=== PATIENT | male | born 1945 | race Caucasian/White ===

== ENCOUNTER 2019-06-11 20:47 | Inpatient (IN) ==
[2019-06-11] MEDS ORDERED: SODIUM CHLORIDE 0.9% 1,000 ML IV STA (22:10)
[2019-06-11] MEDS ORDERED: ONDANSETRON 4 MG/2 ML VIAL IV STA (22:10)
[2019-06-11] MEDS ORDERED: ORPHENADRINE 60 MG/2 ML VIAL IV STA (22:10)
[2019-06-11 22:17] LABS: Basophils % 0.5 % (0.0-0.8); Eosinophils # 0.2 10*3/uL (0.0-0.87); Eosinophils % 2.2 % (0.00-10.9); Hematocrit 36.9 VOL% (42.0-52.0); Hemoglobin 11.4 GM/DL (14.0-18.0); Immature Granulocytes % 0.5 %; Immature Granulocytes Absolute 0.04 #; Lymphocytes # 1.2 10*3/uL (1.4-4.0); Lymphocytes % 14.2 % (21.2-54.2); Mean Corpuscular HGB Conc 30.9 GM/DL (32-36); Mean Corpuscular Volume 96.6 FL (87-102); Mean Platelet Volume 10.2 FL (9.6-12.0); Monocytes % 12.4 % (1.7-12.7); Neutrophils % 70.2 % (38.7-73.9); Platelet Count 171 T/CUMM (130-400); Red Blood Count 3.82 MC/CUMM (3.8-5.5); Red Cell Distribution Width 13.7 % (9.3-17.3); White Blood Count 8.3 T/CUMM (4-12)
[2019-06-11 22:32] LABS: Albumin 3.5 G/DL (3.4-5.0); Bilirubin,Total 0.4 MG/DL (0.2-1.0); CKMB % 1.7 %; Calcium 8.1 MG/DL (8.5-10.1); Total Protein 5.9 G/DL (6.4-8.3); Troponin I < 0.015 NG/ML (0.00-0.045)
[2019-06-12 00:23] LABS: INR 0.9; PT Patient Result 10.2 SECS; Partial Thromboplastin Time 29.8 SECS (0-40)
[2019-06-12] MEDS ORDERED: SODIUM CHLORIDE 0.9% 1,000 ML IV STA (00:42)
[2019-06-12] MEDS ORDERED: PROMETHAZINE 25 MG/1 ML VIAL IM PRN (00:48)
[2019-06-12] MEDS ORDERED: NICOTINE 21 MG/24 HR PATCH TRANSDERM PRN (00:48)
[2019-06-12] MEDS ORDERED: diphenhydrAMINE CAP 25 MG CAPSULE PO PRN (00:48)
[2019-06-12] MEDS ORDERED: ONDANSETRON 4 MG/2 ML VIAL IV PRN (00:48)
[2019-06-12] MEDS ORDERED: ACETAMINOPHEN 325 MG TABLET PO PRN (00:48)
[2019-06-12] MEDS ORDERED: MORPHINE 4 MG/1 ML VIAL IV PRN (00:48)
[2019-06-12] MEDS ORDERED: guaiFENesin/DM ER 600-30 MG TABLET PO PRN (00:48)
[2019-06-12] MEDS ORDERED: VANCOMYCIN INJ 1,250 MG in SODIUM CHLORIDE 0.9% 250 ML IV PRN (01:00)
[2019-06-12] MEDS ORDERED: PIPERACILLIN/TAZOBACTAM 3,375 MG in SODIUM CHLORIDE 0.9% 100 ML IV SCH (01:00)
[2019-06-12 01:38] LABS: Risk Ratio 5.47; VLDL CHOLESTEROL 24.4 MG/DL
[2019-06-12] MEDS: SODIUM CHLORIDE 0.9% 1,000 ML IV SCH ×4 (02:20→18:26)
[2019-06-12 03:19] LABS: ABG Oxygen Saturation 98.1 % (95-100); ABG PCO2 49.2 MM HG (35-48); ABG PH 7.218 (7.35-7.45); ABG TCO2 18.4 MMOL/L (23-27); Allen Test Positive
[2019-06-12 04:35] LABS: Basophils % 0.4 % (0.0-0.8); Eosinophils # 0.2 10*3/uL (0.0-0.87); Eosinophils % 2.5 % (0.00-10.9); Hematocrit 33.5 VOL% (42.0-52.0); Hemoglobin 10.5 GM/DL (14.0-18.0); Immature Granulocytes % 0.6 %; Immature Granulocytes Absolute 0.04 #; Lymphocytes # 1.2 10*3/uL (1.4-4.0); Lymphocytes % 17.1 % (21.2-54.2); Mean Corpuscular HGB Conc 31.3 GM/DL (32-36); Mean Corpuscular Volume 97.1 FL (87-102); Mean Platelet Volume 10.5 FL (9.6-12.0); Monocytes % 13.8 % (1.7-12.7); Neutrophils % 65.6 % (38.7-73.9); Platelet Count 143 T/CUMM (130-400); Red Blood Count 3.45 MC/CUMM (3.8-5.5); Red Cell Distribution Width 13.7 % (9.3-17.3); White Blood Count 7.2 T/CUMM (4-12)
[2019-06-12 05:09] LABS: Alanine Aminotransferase 17 U/L (16-61); Albumin 3.1 G/DL (3.4-5.0); Alkaline Phosphatase 92 U/L (45-117); Aspartate Amino Transferase 20 U/L (0-37); Blood Urea Nitrogen 61 MG/DL (7-18); Calcium 7.7 MG/DL (8.5-10.1); Glucose 88 MG/DL (74-106); Osmolality,Calculated 290.7 MOS/KG (273-304); Total Protein 5.7 G/DL (6.4-8.3); Troponin I < 0.015 NG/ML (0.00-0.045)
[2019-06-12] MEDS: AZITHROMYCIN INJ 500 MG in SODIUM CHLORIDE 0.9% 250 ML IV SCH (06:07)
[2019-06-12] MEDS ORDERED: DEXTROSE 50% 25 GM/50 ML VIAL IV PRN (07:31)
[2019-06-12] MEDS ORDERED: GLUCAGON 1 MG VIAL IM PRN (07:31)
[2019-06-12 07:54] LABS: Amorphous Crystals,Urine Occasional /HPF (Few); Apearance,Urine CLOUDY (Clear); Bacteria,Urine Occasional /HPF (Few); Bilirubin,Urine Negative (Negative); Blood, Urine Small mg/dL (Negative); Glucose,Urine (UA) Negative (Negative); Hyaline Casts,Urine 35 /LPF (0-3); Ketones,Urine Negative (Negative); Mucus,Urine Occasional /LPF (Occasional); Nitrite,Urine Negative (Negative); Protein,Urine Negative; RBC,Urine 6 /HPF (0-4); Urine Color Yellow (Yellow); Urine Specific Gravity 1.015 (1.001-1.035); Urine Urobilinogen < 2.0 EU/DL (0.2-1.0); WBC,Urine 9 /HPF (0-6)
[2019-06-12] MEDS ORDERED: VANCOMYCIN INJ 1,250 MG in SODIUM CHLORIDE 0.9% 250 ML IV ONE (08:00)
[2019-06-12] MEDS: predniSONE 20 MG TABLET PO SCH (08:21)
[2019-06-12] MEDS: PANTOPRAZOLE 40 MG TABLET PO SCH (08:21)
[2019-06-12] MEDS ORDERED: predniSONE 5 MG TABLET PO SCH (09:00)
[2019-06-12] MEDS: INSULIN LISPRO 100 UNIT/ML SUBCUT SCH ×3 (12:20→20:51)
[2019-06-12 13:00] LABS: ABG Base Excess -8.3 MMOL/L (-2.5-2.5); ABG HCO3 17.6 MMOL/L (20-26); ABG Oxygen Saturation 92.5 % (95-100); ABG PCO2 52.5 MM HG (35-48); ABG PO2 75.6 MM HG (80-95); ABG TCO2 18.7 MMOL/L (23-27)
[2019-06-12 13:03] LABS: ABG PH 7.194 (7.35-7.45)
[2019-06-12] MEDS ORDERED: SODIUM BICARBONATE 50 MEQ/50 ML VIAL IV ONE ×2 (13:14→13:21)
[2019-06-12] MEDS ORDERED: NALOXONE 0.4 MG/ML VIAL ONE (13:14)
[2019-06-12] MEDS ORDERED: NALOXONE 0.4 MG/ML VIAL IV ONE ×2 (13:22→13:31)
[2019-06-12] MEDS ORDERED: NOREPINEPHRINE 8 MG in SODIUM CHLORIDE 0.9% 242 ML IV PRN (13:22)
[2019-06-12 15:06] LABS: ABG Base Excess -5.7 MMOL/L (-2.5-2.5); ABG HCO3 19.5 MMOL/L (20-26); ABG Oxygen Saturation 97.6 % (95-100); ABG PH 7.339 (7.35-7.45); ABG PO2 113.8 MM HG (80-95); ABG TCO2 20.6 MMOL/L (23-27); Pt O2 Delivery Device BIPAP
[2019-06-12] MEDS ORDERED: ENOXAPARIN 100 MG/ML SYRINGE SUBCUT ONE (17:28)
[2019-06-12] MEDS ORDERED: METOPROLOL TARTRATE 50 MG TABLET PO ONE (17:31)
[2019-06-12 18:31] LABS: Calcium 7.3 MG/DL (8.5-10.1); Osmolality,Calculated 295.7 MOS/KG (273-304)
[2019-06-12] MEDS: LIDOCAINE 5% PATCH TRANSDERM SCH (22:35)
[2019-06-13] MEDS: oxyCODONE/ACETAMINOPHEN 5-325 MG TABLET PO PRN ×3 (02:35→12:48)
[2019-06-13] MEDS: SODIUM CHLORIDE 0.9% 1,000 ML IV SCH ×4 (03:32→21:13)
[2019-06-13 04:38] LABS: Basophils % 0.2 % (0.0-0.8); Eosinophils % 0.2 % (0.00-10.9); Hematocrit 30.6 VOL% (42.0-52.0); Hemoglobin 9.8 GM/DL (14.0-18.0); Immature Granulocytes % 0.7 %; Immature Granulocytes Absolute 0.04 #; Lymphocytes # 0.7 10*3/uL (1.4-4.0); Lymphocytes % 11.8 % (21.2-54.2); Mean Corpuscular Volume 95.6 FL (87-102); Mean Platelet Volume 10.3 FL (9.6-12.0); Monocytes % 12.2 % (1.7-12.7); Neutrophils % 74.9 % (38.7-73.9); Platelet Count 125 T/CUMM (130-400); Red Cell Distribution Width 13.2 % (9.3-17.3); White Blood Count 5.7 T/CUMM (4-12)
[2019-06-13 04:56] LABS: Calcium 7.9 MG/DL (8.5-10.1); Osmolality,Calculated 293.3 MOS/KG (273-304)
[2019-06-13] MEDS: AZITHROMYCIN INJ 500 MG in SODIUM CHLORIDE 0.9% 250 ML IV SCH (05:28)
[2019-06-13] MEDS ORDERED: MORPHINE 4 MG/1 ML VIAL IV ONE (06:04)
[2019-06-13] MEDS: LEVOTHYROXINE 50 MCG TABLET PO SCH (06:30)
[2019-06-13] MEDS: predniSONE 20 MG TABLET PO SCH (09:27)
[2019-06-13] MEDS: GABAPENTIN 300 MG CAPSULE PO SCH (09:28)
[2019-06-13] MEDS: INSULIN LISPRO 100 UNIT/ML SUBCUT SCH ×4 (09:28→21:15)
[2019-06-13] MEDS: PANTOPRAZOLE 40 MG TABLET PO SCH (09:28)
[2019-06-13] MEDS: LIDOCAINE 5% PATCH TRANSDERM SCH (09:28)
[2019-06-13] MEDS ORDERED: GABAPENTIN 300 MG CAPSULE PO SCH (12:00)
[2019-06-13] MEDS: MORPHINE ER 15 MG TABLET PO SCH (21:14)
[2019-06-14] MEDS: oxyCODONE/ACETAMINOPHEN 5-325 MG TABLET PO PRN (04:39)
[2019-06-14] MEDS: SODIUM CHLORIDE 0.9% 1,000 ML IV SCH (05:31)
[2019-06-14] MEDS: AZITHROMYCIN INJ 500 MG in SODIUM CHLORIDE 0.9% 250 ML IV SCH (05:32)
[2019-06-14] MEDS: LEVOTHYROXINE 50 MCG TABLET PO SCH ×2 (05:34→07:28)
[2019-06-14 06:01] LABS: Basophils % 0.3 % (0.0-0.8); Eosinophils # 0.1 10*3/uL (0.0-0.87); Eosinophils % 1.2 % (0.00-10.9); Hematocrit 31.2 VOL% (42.0-52.0); Hemoglobin 10.1 GM/DL (14.0-18.0); Immature Granulocytes % 0.3 %; Immature Granulocytes Absolute 0.02 #; Lymphocytes % 17.2 % (21.2-54.2); Mean Corpuscular HGB Conc 32.4 GM/DL (32-36); Mean Corpuscular Volume 94.5 FL (87-102); Mean Platelet Volume 10.6 FL (9.6-12.0); Monocytes % 15.5 % (1.7-12.7); Neutrophils % 65.5 % (38.7-73.9); Platelet Count 135 T/CUMM (130-400); Red Cell Distribution Width 13.1 % (9.3-17.3); White Blood Count 5.8 T/CUMM (4-12)
[2019-06-14 06:35] LABS: Calcium 8.2 MG/DL (8.5-10.1); Osmolality,Calculated 290.8 MOS/KG (273-304)
[2019-06-14 08:06] VITALS: BP 143/77
[2019-06-14] MEDS: GABAPENTIN 300 MG CAPSULE PO SCH (08:24)
[2019-06-14] MEDS: PANTOPRAZOLE 40 MG TABLET PO SCH (08:24)
[2019-06-14] MEDS: MORPHINE ER 15 MG TABLET PO SCH (08:24)
[2019-06-14] MEDS: LIDOCAINE 5% PATCH TRANSDERM SCH (08:31)
[2019-06-14] MEDS: INSULIN LISPRO 100 UNIT/ML SUBCUT SCH (08:38)
[2019-06-14] MEDS ORDERED: predniSONE 5 MG TABLET PO SCH (09:00)
[2019-06-14 10:09] LABS: Random Urine Protein (Bench) 45 MG/DL (<11.9)
== END 2019-06-14 11:26 | disposition home health service (06) | DRG 682 ==
LOC: N.ED 20:47 → N.EDINP 20:47 → SUATTDRO 23:10 → N.ICU 06-12 01:03 → N.2E 06-13 15:19
PROVIDERS: ADMIT Internal Medicine; ATTEND Internal Medicine

== ENCOUNTER 2020-12-14 09:38 | Observation (INO) ==
[2020-12-14 10:24] LABS: Basophils % 0.4 % (0.0-0.8); Eosinophils # 0.1 10*3/uL (0.0-0.87); Eosinophils % 0.6 % (0.00-10.9); Hematocrit 37.6 VOL% (42.0-52.0); Hemoglobin 11.6 GM/DL (14.0-18.0); Immature Granulocytes % 0.4 %; Immature Granulocytes Absolute 0.04 #; Lymphocytes # 0.5 10*3/uL (1.4-4.0); Lymphocytes % 5.1 % (21.2-54.2); Mean Corpuscular HGB Conc 30.9 GM/DL (32-36); Mean Corpuscular Volume 86.6 FL (87-102); Mean Platelet Volume 9.9 FL (9.6-12.0); Monocytes % 9.2 % (1.7-12.7); Neutrophils % 84.3 % (38.7-73.9); Platelet Count 168 T/CUMM (130-400); Red Blood Count 4.34 MC/CUMM (3.8-5.5); Red Cell Distribution Width 14.6 % (9.3-17.3); White Blood Count 10.2 T/CUMM (4-12)
[2020-12-14 10:56] LABS: Albumin 3.3 G/DL (3.4-5.0); Calcium 8.9 MG/DL (8.5-10.1); Osmolality,Calculated 274.2 MOS/KG (273-304); Potassium 4.3 MMOL/L (3.5-5.1); Total Protein 6.6 G/DL (6.4-8.3)
[2020-12-14 11:06] LABS: Partial Thromboplastin Time 30.9 SECS (23.9-33.8)
[2020-12-14 13:24] LABS: Bilirubin,Urine Negative (Negative); Blood, Urine Negative (Negative); Glucose,Urine (UA) Negative (Negative); Ketones,Urine Negative (Negative); Mucus,Urine Occasional /LPF (Occasional); Nitrite,Urine Negative (Negative); Protein,Urine Negative; RBC,Urine 1 /HPF (0-4); Sperm,Urine Occasional /HPF (Negative); Urine Appearance CLEAR (Clear); Urine Color Yellow (Yellow); Urine Specific Gravity 1.012 (1.001-1.035); Urine Urobilinogen < 2.0 EU/DL (0.2-1.0)
[2020-12-14] MEDS ORDERED: DEXTROSE 50% 25 GM/50 ML VIAL IV PRN ×2 (14:24)
[2020-12-14] MEDS ORDERED: GLUCAGON 1 MG VIAL IM PRN ×2 (14:24)
[2020-12-14] MEDS ORDERED: oxyCODONE/ACETAMINOPHEN 5-325 MG TABLET PO PRN (14:30)
[2020-12-14] MEDS ORDERED: ENOXAPARIN 30 MG/0.3 ML SYRINGE SUBCUT SCH (14:30)
[2020-12-14] MEDS: SODIUM CHLORIDE 0.9% 1,000 ML IV SCH (17:00)
[2020-12-14] MEDS: GABAPENTIN 400 MG CAPSULE PO SCH ×2 (17:00→20:49)
[2020-12-14] MEDS: INSULIN LISPRO 100 UNIT/ML SUBCUT SCH ×2 (18:34→20:49)
[2020-12-14] MEDS: MORPHINE ER 15 MG TABLET PO SCH (20:49)
[2020-12-14] MEDS ORDERED: AMITRIPTYLINE 25 MG TABLET PO SCH (21:00)
[2020-12-14] MEDS ORDERED: ATORVASTATIN 20 MG TABLET PO SCH (21:00)
[2020-12-15 05:42] LABS: Basophils % 0.4 % (0.0-0.8); Eosinophils # 0.2 10*3/uL (0.0-0.87); Hematocrit 33.4 VOL% (42.0-52.0); Hemoglobin 10.5 GM/DL (14.0-18.0); Immature Granulocytes % 0.4 %; Immature Granulocytes Absolute 0.04 #; Lymphocytes # 1.3 10*3/uL (1.4-4.0); Lymphocytes % 14.2 % (21.2-54.2); Mean Corpuscular HGB Conc 31.4 GM/DL (32-36); Mean Corpuscular Volume 86.1 FL (87-102); Mean Platelet Volume 11.3 FL (9.6-12.0); Monocytes % 11.9 % (1.7-12.7); Neutrophils % 71.1 % (38.7-73.9); Platelet Count 152 T/CUMM (130-400); Red Blood Count 3.88 MC/CUMM (3.8-5.5); Red Cell Distribution Width 14.9 % (9.3-17.3); White Blood Count 8.9 T/CUMM (4-12)
[2020-12-15 06:04] LABS: Calcium 8.5 MG/DL (8.5-10.1); Osmolality,Calculated 275.8 MOS/KG (273-304); Potassium 4.2 MMOL/L (3.5-5.1); Risk Ratio 3.35; VLDL CHOLESTEROL 12.4 MG/DL
[2020-12-15] MEDS ORDERED: LEVOTHYROXINE 25 MCG TABLET PO SCH (07:00)
[2020-12-15] MEDS ORDERED: CITALOPRAM 40 MG TABLET PO SCH (09:00)
[2020-12-15] MEDS ORDERED: PANTOPRAZOLE 40 MG TABLET PO SCH (09:00)
[2020-12-15] MEDS ORDERED: LISINOPRIL/HCTZ 10-12.5 MG TABLET PO SCH (09:00)
[2020-12-15] MEDS ORDERED: PIOGLITAZONE 15 MG TABLET PO SCH (09:00)
[2020-12-15] MEDS ORDERED: ASPIRIN 325 MG TABLET PO SCH (09:00)
[2020-12-15] MEDS: SODIUM CHLORIDE 0.9% 1,000 ML IV SCH (09:59)
[2020-12-15] MEDS: GABAPENTIN 400 MG CAPSULE PO SCH (10:01)
[2020-12-15] MEDS: MORPHINE ER 15 MG TABLET PO SCH (10:03)
[2020-12-15] MEDS: INSULIN LISPRO 100 UNIT/ML SUBCUT SCH ×2 (10:05→13:05)
[2020-12-15 12:11] VITALS: BP 111/60
== END 2020-12-15 11:24 | disposition home or self-care (01) ==
LOC: N.ED 09:38 → N.EDINP 09:38 → SUATTDRO 14:24 → N.TELES 16:54
PROVIDERS: ADMIT Internal Medicine; ATTEND Emergency Medicine

== ENCOUNTER 2021-11-26 05:39 | Inpatient (IN) ==
[2021-11-26] MEDS ORDERED: VANCOMYCIN INJ 1,000 MG in SODIUM CHLORIDE 0.9% 250 ML IV ONE (06:00)
[2021-11-26] MEDS: LACTATED RINGERS 1,000 ML IV SCH ×2 (07:25→12:57)
[2021-11-26] MEDS ORDERED: ACETAMINOPHEN 500 MG TABLET PO ONE (07:49)
[2021-11-26] MEDS ORDERED: FAMOTIDINE 20 MG TABLET PO ONE (07:49)
[2021-11-26] MEDS ORDERED: DIAZEPAM 5 MG TABLET PO ONE (07:49)
[2021-11-26] MEDS ORDERED: GABAPENTIN 400 MG CAPSULE PO ONE (07:49)
[2021-11-26] MEDS ORDERED: fentaNYL 100 MCG/2 ML VIAL ONE ×2 (09:21→10:44)
[2021-11-26] MEDS ORDERED: LIDOCAINE 1% 5 ML VIAL ONE (09:24)
[2021-11-26] MEDS ORDERED: ROPIVACAINE 0.5% 30 ML VIAL ONE (09:24)
[2021-11-26] MEDS ORDERED: DEXAMETHASONE 4 MG/1 ML VIAL ONE (09:24)
[2021-11-26] MEDS ORDERED: propofoL 200 MG/20 ML VIAL IV ONE (09:54)
[2021-11-26] MEDS ORDERED: ETOMIDATE 40 MG/20 ML VIAL IV ONE (09:54)
[2021-11-26] MEDS ORDERED: LIDOCAINE 2% 5 ML VIAL ONE (09:54)
[2021-11-26] MEDS ORDERED: ROCURONIUM 50 MG/5 ML VIAL IV ONE (09:54)
[2021-11-26] MEDS ORDERED: ePHEDrine 50 MG/ML VIAL ONE (10:16)
[2021-11-26] MEDS ORDERED: diphenhydrAMINE CAP 25 MG CAPSULE PO PRN (10:20)
[2021-11-26] MEDS ORDERED: PROMETHAZINE 25 MG/1 ML VIAL IM PRN (10:20)
[2021-11-26] MEDS ORDERED: LACTULOSE 20 GM/30 ML UDCUP PO PRN (10:20)
[2021-11-26] MEDS ORDERED: TEMAZEPAM 7.5 MG CAPSULE PO PRN (10:20)
[2021-11-26] MEDS ORDERED: ONDANSETRON 4 MG/2 ML VIAL IV PRN ×2 (10:20→11:57)
[2021-11-26] MEDS ORDERED: MAGNESIUM HYDROXIDE SUSP 30 ML UDCUP PO PRN (10:20)
[2021-11-26] MEDS ORDERED: BISACODYL 10 MG SUPP RECTAL PRN (10:20)
[2021-11-26] MEDS ORDERED: [UNRECOGNIZED DRUG - OTHER] PO PRN (10:25)
[2021-11-26] MEDS ORDERED: IBUPROFEN 400 MG TABLET PO PRN (10:25)
[2021-11-26] MEDS ORDERED: CYCLOBENZAPRINE 10 MG TABLET PO PRN (10:25)
[2021-11-26] MEDS ORDERED: PHENYLEPHRINE 1 MG/10 ML SYRINGE IV ONE (10:26)
[2021-11-26] MEDS ORDERED: LACTATED RINGERS 1,000 ML IV ONE (10:26)
[2021-11-26] MEDS ORDERED: GLYCOPYRROLATE 0.4 MG/2 ML VIAL ONE ×2 (10:26→10:56)
[2021-11-26] MEDS ORDERED: NEOSTIGMINE 10 MG/10 ML VIAL ONE (11:04)
[2021-11-26] MEDS ORDERED: SEVOFLURANE 1 UNIT/15 MINUTE INH ONE (11:24)
[2021-11-26] MEDS ORDERED: HYDROmorphone 2 MG/1 ML VIAL ONE (12:03)
[2021-11-26] MEDS: HYDROmorphone 2 MG/1 ML VIAL IV PRN ×3 (12:04→12:18)
[2021-11-26] MEDS: GABAPENTIN 400 MG CAPSULE PO SCH ×2 (15:48→20:29)
[2021-11-26] MEDS: ceFAZolin 2,000 MG/50 ML DUPLEX IV SCH (17:16)
[2021-11-26] MEDS: MORPHINE ER 15 MG TABLET PO SCH (17:16)
[2021-11-26] MEDS: oxyCODONE/ACETAMINOPHEN 5-325 MG TABLET PO PRN (17:22)
[2021-11-26] MEDS: MORPHINE 2 MG/1 ML SYRINGE IV PRN ×2 (19:21→22:14)
[2021-11-26] MEDS: FONDAPARINUX 2.5 MG/0.5 ML SYRINGE SUBCUT SCH (20:29)
[2021-11-26] MEDS: AMITRIPTYLINE 25 MG TABLET PO SCH (20:29)
[2021-11-26] MEDS: DOCUSATE SODIUM 100 MG CAPSULE PO SCH (20:30)
[2021-11-26] MEDS: ZALEPLON 5 MG CAPSULE PO PRN (20:38)
[2021-11-27] MEDS: oxyCODONE/ACETAMINOPHEN 5-325 MG TABLET PO PRN ×4 (01:09→21:34)
[2021-11-27] MEDS: ceFAZolin 2,000 MG/50 ML DUPLEX IV SCH (01:09)
[2021-11-27] MEDS: MORPHINE 2 MG/1 ML SYRINGE IV PRN ×3 (03:31→18:33)
[2021-11-27 05:58] LABS: Basophils # 0.1 10*3/uL (0.0-0.2); Basophils % 0.9 % (0.0-0.8); Eosinophils # 0.1 10*3/uL (0.0-0.87); Eosinophils % 1.3 % (0.00-10.9); Hematocrit 28.6 VOL% (42.0-52.0); Hemoglobin 8.8 GM/DL (14.0-18.0); Immature Granulocytes % 0.4 %; Immature Granulocytes Absolute 0.03 #; Lymphocytes # 0.6 10*3/uL (1.4-4.0); Lymphocytes % 7.8 % (21.2-54.2); Mean Corpuscular HGB Conc 30.8 GM/DL (32-36); Mean Corpuscular Volume 83.9 FL (87-102); Mean Platelet Volume 9.9 FL (9.6-12.0); Monocytes % 11.3 % (1.7-12.7); Neutrophils % 78.3 % (38.7-73.9); Platelet Count 175 T/CUMM (130-400); Red Blood Count 3.41 MC/CUMM (3.8-5.5); Red Cell Distribution Width 15.1 % (9.3-17.3); White Blood Count 7.6 T/CUMM (4-12)
[2021-11-27] MEDS ORDERED: MORPHINE 2 MG/1 ML SYRINGE IV PRN (06:00)
[2021-11-27] MEDS: MORPHINE ER 15 MG TABLET PO SCH ×2 (06:07→17:30)
[2021-11-27 06:25] LABS: Calcium 8.1 MG/DL (8.5-10.1); Osmolality,Calculated 276.8 MOS/KG (273-304); Potassium 4.2 MMOL/L (3.5-5.1)
[2021-11-27] MEDS: LEVOTHYROXINE 25 MCG TABLET PO SCH (07:53)
[2021-11-27] MEDS ORDERED: ASPIRIN 325 MG TABLET PO SCH (09:00)
[2021-11-27] MEDS: PIOGLITAZONE 15 MG TABLET PO SCH (09:12)
[2021-11-27] MEDS: LISINOPRIL/HCTZ 10-12.5 MG TABLET PO SCH (09:12)
[2021-11-27] MEDS: GABAPENTIN 400 MG CAPSULE PO SCH ×3 (09:12→21:34)
[2021-11-27] MEDS: ASPIRIN CHEW 81 MG TABLET PO SCH (09:12)
[2021-11-27] MEDS: CITALOPRAM 40 MG TABLET PO SCH (09:12)
[2021-11-27] MEDS: PANTOPRAZOLE 40 MG TABLET PO SCH (09:12)
[2021-11-27] MEDS: DOCUSATE SODIUM 100 MG CAPSULE PO SCH ×2 (09:12→21:34)
[2021-11-27] MEDS: FONDAPARINUX 2.5 MG/0.5 ML SYRINGE SUBCUT SCH (21:34)
[2021-11-27] MEDS: AMITRIPTYLINE 25 MG TABLET PO SCH (21:34)
[2021-11-27] MEDS: ZALEPLON 5 MG CAPSULE PO PRN (21:34)
[2021-11-28 05:16] LABS: Basophils % 0.6 % (0.0-0.8); Eosinophils # 0.3 10*3/uL (0.0-0.87); Eosinophils % 4.5 % (0.00-10.9); Hematocrit 24.5 VOL% (42.0-52.0); Hemoglobin 7.6 GM/DL (14.0-18.0); Immature Granulocytes % 0.6 %; Immature Granulocytes Absolute 0.04 #; Lymphocytes % 15.5 % (21.2-54.2); Mean Corpuscular Volume 82.5 FL (87-102); Mean Platelet Volume 10.3 FL (9.6-12.0); Monocytes % 13.9 % (1.7-12.7); Neutrophils % 64.9 % (38.7-73.9); Platelet Count 150 T/CUMM (130-400); Red Blood Count 2.97 MC/CUMM (3.8-5.5); Red Cell Distribution Width 15.3 % (9.3-17.3); White Blood Count 6.6 T/CUMM (4-12)
[2021-11-28] MEDS: LEVOTHYROXINE 25 MCG TABLET PO SCH (06:19)
[2021-11-28] MEDS: MORPHINE ER 15 MG TABLET PO SCH ×2 (06:19→17:20)
[2021-11-28] MEDS: MORPHINE 2 MG/1 ML SYRINGE IV PRN (08:05)
[2021-11-28] MEDS: PIOGLITAZONE 15 MG TABLET PO SCH (08:06)
[2021-11-28] MEDS: GABAPENTIN 400 MG CAPSULE PO SCH ×3 (08:06→20:24)
[2021-11-28] MEDS: ASPIRIN CHEW 81 MG TABLET PO SCH (08:06)
[2021-11-28] MEDS: LISINOPRIL/HCTZ 10-12.5 MG TABLET PO SCH (08:06)
[2021-11-28] MEDS: DOCUSATE SODIUM 100 MG CAPSULE PO SCH ×2 (08:06→20:23)
[2021-11-28] MEDS: CITALOPRAM 40 MG TABLET PO SCH (08:06)
[2021-11-28] MEDS: PANTOPRAZOLE 40 MG TABLET PO SCH (08:07)
[2021-11-28] MEDS ORDERED: SODIUM CHLORIDE 0.9% 1,000 ML IV PRN ×2 (13:43→17:18)
[2021-11-28] MEDS: FONDAPARINUX 2.5 MG/0.5 ML SYRINGE SUBCUT SCH (20:23)
[2021-11-28] MEDS: AMITRIPTYLINE 25 MG TABLET PO SCH (20:23)
[2021-11-28] MEDS: oxyCODONE/ACETAMINOPHEN 5-325 MG TABLET PO PRN (20:24)
[2021-11-28] MEDS: ZALEPLON 5 MG CAPSULE PO PRN (20:40)
[2021-11-29 02:40] LABS: Basophils # 0.1 10*3/uL (0.0-0.2); Basophils % 0.7 % (0.0-0.8); Eosinophils # 0.9 10*3/uL (0.0-0.87); Eosinophils % 11.2 % (0.00-10.9); Hematocrit 25.8 VOL% (42.0-52.0); Immature Granulocytes % 0.5 %; Immature Granulocytes Absolute 0.04 #; Lymphocytes # 1.5 10*3/uL (1.4-4.0); Lymphocytes % 19.4 % (21.2-54.2); Mean Corpuscular Volume 84.6 FL (87-102); Mean Platelet Volume 10.1 FL (9.6-12.0); Monocytes % 13.9 % (1.7-12.7); Neutrophils % 54.3 % (38.7-73.9); Platelet Count 146 T/CUMM (130-400); Red Blood Count 3.05 MC/CUMM (3.8-5.5); Red Cell Distribution Width 15.7 % (9.3-17.3); White Blood Count 7.6 T/CUMM (4-12)
[2021-11-29 03:06] LABS: Eosinophils 13 % (0-10); Hypochromia Slight; Lymphocytes 17 % (20-55); Microcytosis Slight; Platelet Estimate Normal; Segmented Neutrophils 62 % (50-85); Total Cells Counted 100
[2021-11-29] MEDS: MORPHINE ER 15 MG TABLET PO SCH ×2 (06:03→17:17)
[2021-11-29] MEDS: LEVOTHYROXINE 25 MCG TABLET PO SCH (06:03)
[2021-11-29] MEDS ORDERED: SODIUM CHLORIDE 0.9% 1,000 ML IV PRN (08:11)
[2021-11-29] MEDS: GABAPENTIN 400 MG CAPSULE PO SCH ×3 (08:20→20:26)
[2021-11-29] MEDS: PIOGLITAZONE 15 MG TABLET PO SCH (08:20)
[2021-11-29] MEDS: ASPIRIN CHEW 81 MG TABLET PO SCH (08:20)
[2021-11-29] MEDS: LISINOPRIL/HCTZ 10-12.5 MG TABLET PO SCH (08:21)
[2021-11-29] MEDS: DOCUSATE SODIUM 100 MG CAPSULE PO SCH ×2 (08:21→20:27)
[2021-11-29] MEDS: CITALOPRAM 40 MG TABLET PO SCH (08:21)
[2021-11-29] MEDS: PANTOPRAZOLE 40 MG TABLET PO SCH (08:21)
[2021-11-29] MEDS: oxyCODONE/ACETAMINOPHEN 5-325 MG TABLET PO PRN ×2 (08:22→20:32)
[2021-11-29] MEDS: MORPHINE 2 MG/1 ML SYRINGE IV PRN ×2 (12:20→18:25)
[2021-11-29] MEDS: FONDAPARINUX 2.5 MG/0.5 ML SYRINGE SUBCUT SCH (20:25)
[2021-11-29] MEDS: AMITRIPTYLINE 25 MG TABLET PO SCH (20:26)
[2021-11-29 21:59] LABS: Hematocrit 30.2 VOL% (42.0-52.0); Hemoglobin 9.9 GM/DL (14.0-18.0)
[2021-11-29] MEDS: ZALEPLON 5 MG CAPSULE PO PRN (22:34)
[2021-11-30] MEDS: oxyCODONE/ACETAMINOPHEN 5-325 MG TABLET PO PRN ×2 (04:44→10:56)
[2021-11-30] MEDS: MORPHINE ER 15 MG TABLET PO SCH (06:50)
[2021-11-30] MEDS: LEVOTHYROXINE 25 MCG TABLET PO SCH (06:51)
[2021-11-30] MEDS: DOCUSATE SODIUM 100 MG CAPSULE PO SCH (09:30)
[2021-11-30] MEDS: LISINOPRIL/HCTZ 10-12.5 MG TABLET PO SCH (09:30)
[2021-11-30] MEDS: PIOGLITAZONE 15 MG TABLET PO SCH (09:30)
[2021-11-30] MEDS: CITALOPRAM 40 MG TABLET PO SCH (09:30)
[2021-11-30] MEDS: GABAPENTIN 400 MG CAPSULE PO SCH (09:30)
[2021-11-30] MEDS: PANTOPRAZOLE 40 MG TABLET PO SCH (09:30)
[2021-11-30] MEDS: ASPIRIN CHEW 81 MG TABLET PO SCH (09:30)
[2021-11-30 11:25] VITALS: BP 130/66
== END 2021-11-30 14:38 | disposition swing bed (61) | DRG 470 ==
LOC: N.OR 05:39 → N.SDSINP 05:42 → N.3E 14:52
PROVIDERS: ADMIT Orthopaedic Surgery; ATTEND Orthopaedic Surgery